=== PATIENT | male | born 1995 | race Caucasian/White ===

== ENCOUNTER 2016-10-31 07:02 | Emergency (ER) | payer OTHER ==
[~2016-10-31] VITALS: Ht 185.4 cm; Wt 84.6 kg
[2016-10-31 07:07] VITALS: TEMP 37.4; Ht 185.4 cm; Wt 84.6 kg
[2016-10-31] MEDS ORDERED: SODIUM CHLORIDE 0.9% 1000ML 1,000 ML IV STA ×2 (07:13→08:08)
[2016-10-31] MEDS ORDERED: ONDANSETRON INJ 2 MG/ML 2 ML VIAL IV STA (07:13)
[2016-10-31] MEDS ORDERED: KETOROLAC TROMETHAMINE 30 MG/ML VIAL IV STA (07:13)
[2016-10-31 07:24] LABS: BASO % 0.1 %; BASO ABS # 0.01 K/uL (0-0.2); COMPLETE YES; EOS % 0.4 %; HEMATOCRIT 42.8 % (42-52); IG% 0.1 %; LYMPH % 5.5 %; LYMPH ABS # 0.54 K/uL (1.2-3.4); MEAN CELL VOLUME 79.1 fL (80-100); MEAN CORPUSCULAR HEMOGLOBIN 26.8 pg (25-34); MEAN CORPUSCULAR HGB CONC 33.9 g/dl (32-36); MEAN PLATELET VOLUME 10.5 fL (7.4-10.4); MONO % 0.5 %; NEUT % 93.4 %; PLATELET COUNT 250 K/uL (130-400); RED BLOOD COUNT 5.41 M/uL (4.7-6.1); WHITE BLOOD COUNT 9.83 K/uL (4.8-10.8)
[2016-10-31 07:40] LABS: CALCIUM 9.1 mg/dl (8.5-10.1); CREATININE 1.2 mg/dl (0.60-1.40); POTASSIUM 3.6 mmol/L (3.5-5.1)
[2016-10-31] MEDS ORDERED: PROM25TA9 PO (08:13)
[2016-10-31 08:36] LABS: URINE APPEARANCE CLEAR (CLEAR); URINE BILIRUBIN NEG (NEG); URINE COLOR ORANGE; URINE NITRITE NEG (NEG); URINE SPECIFIC GRAVITY 1.023 (1.000-1.030); UROBILINOGEN NEG (NEG)
[2016-10-31 08:38] LABS: MANUAL MICROSCOPIC REQUIRED? NO; REVIEW REQ? NO
[2016-10-31 08:55] VITALS: BP 111/63; PULSE 115; O2SAT 96
--- NOTE | 2016-10-31 11:09 | EMERGENCY ROOM VISIT NOTE ---
History First contact with patient: 07:10 Chief Complaint: GI ASSESSMENT Stated Complaint: SHAKING,VOMITING,DIARRHEA,NAUSEA,HEADACHE Nursing Triage Summary: patient states he has had "really bad diarrhea for the past 2 days." today woke up with lower abdominal pain nausea and vomiting History of Present Illness The patient is a 21 year old male who presents to the Emergency Room with complaints of nausea, vomiting, diarrhea and headache. The patient reports that he woke up at 5:30 AM with the symptoms. The patient did have watery diarrhea yesterday. He has not had any blood in the stool or vomitus. He denies any recent sick contacts. He has had no recent foreign travel. He currently rates his overall discomfort a 5 out of 10. The patient reports that he has had some intermittent lower abdominal discomfort over the past 2 weeks. 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 He has had normal labs and a normal ultrasound study. The patient plans to follow-up with a account clerk. Review of Systems HEENT: Denies dizziness, visual problems, hearing loss, tinnitus. Denies difficulty swallowing or oral lesions. PULMONARY: Denies cough, shortness of breath, sputum production or hemoptysis. CARDIOVASCULAR: Denies chest pain, palpitations, dyspnea on exertion, orthopnea or peripheral edema. GASTROINTESTINAL: Denies diarrhea, constipation, nausea, vomiting, or abdominal pain. GENITOURINARY: Denies dysuria, frequency, urgency or nocturia. NEUROLOGIC: Denies history of epilepsy, CVA, TIA or chronic headaches. MUSCULOSKELETAL: Denies history of joint tenderness/swelling. SKIN: Denies rashes or lesions. PSYCHIATRIC: Denies history of depression or mental illness. ENDOCRINE: Denies history of diabetes, thyroid disorders, abnormal hair growth or sexual dysfunction. Past Medical/Surgical History Medical Problems: (1) No significant past medical history Surgical Problems: (1) History of orthopedic surgery Social History Smoking Status: Never Smoker Alcohol Use: occasionally Marital Status: single Housing Status: lives alone Occupation Status: [employer] Current/Historical Medications Scheduled PRN Promethazine Hcl (Phenergan), 25 MG PO q4-6h PRN for Nausea Allergies Coded Allergies: No Known Allergies (Unverified , 10/31/16) Physical Exam Vital Signs Date Time Temp Pulse Resp B/P Pulse Ox O2 Delivery O2 Flow Rate FiO2 10/31/16 08:55 115 20 111/63 96 10/31/16 07:07 37.4 145 18 136/70 96 Room Air Physical Exam CONSTITUTIONAL: Healthy and well nourished. Alert and oriented X 3 with positive affect. The patient is in moderate distress with vomiting. HEENT: Normocephalic, atraumatic. Pupils equal, round and reactive. Ears and nares are clear. OROPHARYNX: Mucous members are dry. No significant posterior pharyngeal erythema, tonsillar hypertrophy or exudates. NECK: Full active range of motion without discomfort. RESPIRATORY: Clear to auscultation bilaterally with no wheezing, crackles, rhonchi or stridor. CARDIOVASCULAR: Regular rate and rhythm with no murmurs, rubs or gallops. GASTROINTESTINAL: Bowel sounds present in all quadrants. She has generalized abdominal tenderness to palpation without rigidity, guarding or rebound. Negative CVA tenderness. MUSCULOSKELETAL: Full range of motion of all joints without discomfort. INTEGUMENTARY: No rash or other significant dermatologic conditions noted. HEMATOLOGIC: No ecchymosis or petechiae. NEUROLOGIC: No focal neurologic deficits noted. Medical Decision & Procedures Laboratory Results 10/31/16 07:15 Red Blood Count 5.41, Mean Corpuscular Volume 79.1, Mean Corpuscular Hemoglobin 26.8, Mean Corpuscular Hemoglobin Concent 33.9, Mean Platelet Volume 10.5, Neutrophils (%) (Auto) 93.4, Lymphocytes (%) (Auto) 5.5, Monocytes (%) (Auto) 0.5, Eosinophils (%) (Auto) 0.4, Basophils (%) (Auto) 0.1, Neutrophils # (Auto) 9.18, Lymphocytes # (Auto) 0.54, Monocytes # (Auto) 0.05, Eosinophils # (Auto) 0.04, Basophils # (Auto) 0.01 10/31/16 07:15 Test 10/31/16 07:15 10/31/16 08:06 White Blood Count 9.83 K/uL (4.8-10.8) Red Blood Count 5.41 M/uL (4.7-6.1) Hemoglobin 14.5 g/dL (14.0-18.0) Hematocrit 42.8 % (42-52) Mean Corpuscular Volume 79.1 fL (80-100) Mean Corpuscular Hemoglobin 26.8 pg (25-34) Mean Corpuscular Hemoglobin Concent 33.9 g/dl (32-36) Platelet Count 250 K/uL (130-400) Mean Platelet Volume 10.5 fL (7.4-10.4) Neutrophils (%) (Auto) 93.4 % Lymphocytes (%) (Auto) 5.5 % Monocytes (%) (Auto) 0.5 % Eosinophils (%) (Auto) 0.4 % Basophils (%) (Auto) 0.1 % Neutrophils # (Auto) 9.18 K/uL (1.4-6.5) Lymphocytes # (Auto) 0.54 K/uL (1.2-3.4) Monocytes # (Auto) 0.05 K/uL (0.11-0.59) Eosinophils # (Auto) 0.04 K/uL (0-0.5) Basophils # (Auto) 0.01 K/uL (0-0.2) RDW Standard Deviation 40.3 fL (36.4-46.3) RDW Coefficient of Variation 14.1 % (11.5-14.5) Immature Granulocyte % (Auto) 0.1 % Immature Granulocyte # (Auto) 0.01 K/uL (0.00-0.02) Anion Gap 9.0 mmol/L (3-11) Est Creatinine Clear Calc Drug Dose 109.1 ml/min Estimated GFR () 98.9 Estimated GFR (Non- 85.3 BUN/Creatinine Ratio 12.0 (10-20) Calcium Level 9.1 mg/dl (8.5-10.1) Total Bilirubin 1.3 mg/dl (0.2-1) Direct Bilirubin 0.3 mg/dl (0-0.2) Aspartate Amino Transf (AST/SGOT) 19 U/L (15-37) Alanine Aminotransferase (ALT/SGPT) 25 U/L (12-78) Alkaline Phosphatase 117 U/L (45-117) Total Creatine Kinase 107 U/L (39-308) Total Protein 7.9 gm/dl (6.4-8.2) Albumin 3.8 gm/dl (3.4-5.0) Lipase 81 U/L (73-393) Urine Color ORANGE Urine Appearance CLEAR (CLEAR) Urine pH 5.0 (4.5-7.5) Urine Specific [place] 1.023 (1.000-1.030) Urine Protein NEG (NEG) Urine Glucose (UA) NEG (NEG) Urine Ketones TRACE (NEG) Urine Occult Blood NEG (NEG) Urine Nitrite NEG (NEG) Urine Bilirubin NEG (NEG) Urine Urobilinogen NEG (NEG) Urine Leukocyte Esterase NEG (NEG) The above labs were reviewed. CBC, partial renal profile, LFTs and lipase are normal. Bilirubins are elevated. Medications Administered Medications (Trade) Dose Ordered Sig/Spencer Route Start Time Stop Time Status Last Admin Dose Admin Ketorolac Tromethamine 30 mg 30 mg NOW STAT IV 10/31/16 07:13 10/31/16 07:14 DC 10/31/16 07:19 30 MG Sodium Chloride (Nss 1000ml) 1,000 ml @ 999 mls/hr Q1H1M STAT IV 10/31/16 07:13 10/31/16 08:13 DC 10/31/16 07:16 999 MLS/HR Ondansetron HCl 4 mg 4 mg NOW STAT IV 10/31/16 07:13 10/31/16 07:14 DC 10/31/16 07:19 4 MG Sodium Chloride (Nss 1000ml) 1,000 ml @ 999 mls/hr Q1H1M STAT IV 10/31/16 08:08 10/31/16 09:08 DC 10/31/16 08:08 999 MLS/HR Procedure 1. IV hydration: The patient received a liter normal saline bolus 2. IV medications: Toradol 30 mg and Zofran 4 mg IVP ED Course Patient history and physical exam were performed. Nurse's notes were reviewed. Vital signs were reviewed, showing a heart rate 145. Temperature is 37.4C. The patient is normotensive. IV access was established, and labs were drawn. The patient was hydrated with normal saline, and received IV medications as discussed in the previous Procedure section. Review of labs shows no leukocytosis, electrolyte abnormality, elevated LFTs or lipase. Bilirubin levels are elevated, likely secondary to vomiting. The patient reports feeling much better after IV hydration and medications, and requested discharge home. The patient was encouraged to remain well-hydrated. He was provided a prescription for Phenergan as needed for nausea. Tylenol as needed for pain/ fever. Return to the emergency department for any persistent vomiting or inability to remain hydrated. Otherwise, he was instructed to follow-up with [facility] as needed for any persistent GI symptoms. The patient again reports that he intends to follow-up with gastroenterology for his prior abdominal pain. The patient was happy with plan of care, and denied any significant symptoms at the time of discharge. Medical Decision Patient presents to the emergency department with acute onset of nausea, vomiting and watery diarrhea. I suspect the patient has a viral gastroenteritis. Laboratory studies are relatively unremarkable. At this point , I do not suspect obstruction, appendicitis, colitis, diverticulitis, cholecystitis, pancreatitis or hepatitis. Impression Primary Impression: Gastroenteritis Departure Information Prescriptions Promethazine Hcl (Phenergan) 25 Mg Tab 25 MG PO q4-6h Y for Nausea, #20 TAB Prov: Wilfredo Willard PA 10/31/16 Referrals No Doctor, Assigned (PCP) Patient Instructions My [facility]
== END 2016-10-31 09:23 | disposition home or self-care (01) ==
LOC: C.EDB 07:03
DX: K52.9 Noninfective gastroenteritis and colitis, unspecified (principal)

== ENCOUNTER 2016-12-23 16:15 | Emergency (ER) | payer OTHER ==
[~2016-12-23] VITALS: Ht 185.4 cm; Wt 86.8 kg
[~2016-12-23 16:15] MED LIST: PROM25TA9 PO
[2016-12-23 16:24] VITALS: TEMP 36.8; Ht 185.4 cm; Wt 86.8 kg
[2016-12-23] MEDS ORDERED: SODIUM CHLORIDE 0.9% 1000ML 2,000 ML IV STA (17:08)
[2016-12-23] MEDS ORDERED: PROMETHAZINE HCL INJ 6.25 MG in SODIUM CHLORIDE 0.9% 50ML 50 ML IV STA (17:08)
[2016-12-23] MEDS ORDERED: ONDANSETRON INJ 2 MG/ML 2 ML VIAL IV STA (17:08)
[2016-12-23] MEDS ORDERED: ACETAMINOPHEN 500 MG TAB PO STA (17:08)
[2016-12-23] MEDS ORDERED: PROMETHAZINE HCL INJ 25 MG/ML 1 ML VIAL ONE (18:02)
[2016-12-23 18:11] LABS: BASO % 0.2 %; BASO ABS # 0.02 K/uL (0-0.2); COMPLETE YES; EOS % 0.6 %; HEMATOCRIT 42.4 % (42-52); IG% 0.3 %; LYMPH % 5.7 %; LYMPH ABS # 0.67 K/uL (1.2-3.4); MEAN CELL VOLUME 81.1 fL (80-100); MEAN CORPUSCULAR HEMOGLOBIN 27.2 pg (25-34); MEAN CORPUSCULAR HGB CONC 33.5 g/dl (32-36); MEAN PLATELET VOLUME 10.4 fL (7.4-10.4); MONO % 7.2 %; PLATELET COUNT 310 K/uL (130-400); RED BLOOD COUNT 5.23 M/uL (4.7-6.1)
--- NOTE | 2016-12-23 18:14 | DIAGNOSTIC IMAGING REPORT ---
ABDOMEN 2VIEW W/PA CHEST RTN CLINICAL HISTORY: Abdominal pain and vomiting COMPARISON STUDY: No previous studies for comparison. FINDINGS: The erect chest reveals no evidence of free air. There is no evidence of focal pulmonary consolidation.] Erect and supine views of the abdomen reveal no abnormally dilated loops of large or small bowel. There are no transition zone to indicate bowel obstruction. There is an old left inferior pubic ramus fracture/avulsion with bony hypertrophy. IMPRESSION: No evidence of bowel obstruction. No evidence of free air. Electronically signed by: Gabriel Magdaleno M.D. 12/23/2016 6:13 PM Dictated Date/Time: 12/23/2016 6:12 PM
[2016-12-23 18:36] LABS: BUN/CREATININE RATIO 12.6 (10-20); CALCIUM 9.5 mg/dl (8.5-10.1); CREATININE 0.86 mg/dl (0.60-1.40); POTASSIUM 4.2 mmol/L (3.5-5.1)
[2016-12-23] MEDS ORDERED: ONDANSETRON HOME PACK 4MG OD TAB PO ONE (19:45)
[2016-12-23 20:04] VITALS: BP 118/70; PULSE 77; O2SAT 98
--- NOTE | 2016-12-23 20:55 | EMERGENCY ROOM VISIT NOTE ---
History Report prepared by Ray: Zahira Lombardo Under the Supervision of: Dr. Christos Gray M.D. First contact with patient: 17:04 Chief Complaint: VOMITING Stated Complaint: VOMITING SM AMT OF BLOOD, FEEL LIKE PASSING OUT Nursing Triage Summary: Patient c/o vomiting since last night after he drank alcohol. About an hour ago noticed blood in his vomit, very little amount. C/O headache. States he notice red blood in stool 3 to 4 days. Occurs intermittently. History of Present Illness The patient is a 21 year old male who presents to the Emergency Room with complaints of persistent vomiting starting this morning. He was out drinking alcohol last night and thought the vomiting was a result of his intoxication. He reports nausea and headache. He rates his headache as a 5/10 in severity. He has been unable to keep any food or fluids down today. He noticed a small amount of blood in his vomit today. He had some bloody stool 3-4 days ago. He denies any diarrhea, fever, SOB, cough, or abdominal pain. He denies any head trauma last night. He has not taken any medications for his headache. He had some abdominal pain several months ago and he was told to follow with GI. Source of History: patient Onset: this morning Position: other (global) Quality: other (vomiting) Timing: other (persistent) Associated Symptoms: + headache, + nausea, No SOB, No abdominal pain, No cough, No diarrhea, No fevers Note: Pt reports hematemesis, bloody stool. Review of Systems See HPI for pertinent positives & negatives. A total of 10 systems reviewed and were otherwise negative. Past Medical & Surgical Medical Problems: (1) No significant past medical history Surgical Problems: (1) History of orthopedic surgery Family History No pertinent family history stated. Social History Smoking Status: Never Smoker Alcohol Use: occasionally Marital Status: single Housing Status: lives alone Occupation Status: [employer] student Current/Historical Medications No Active Prescriptions or Reported Meds Allergies Coded Allergies: No Known Allergies (Unverified , 10/31/16) Physical Exam Vital Signs Date Time Temp Pulse Resp B/P Pulse Ox O2 Delivery O2 Flow Rate FiO2 12/23/16 20:04 77 16 118/70 98 12/23/16 18:24 78 16 128/69 100 Room Air 12/23/16 16:24 36.8 87 17 145/81 97 Room Air Physical Exam GENERAL: Patient is in no acute distress. HEENT: No acute trauma, normocephalic atraumatic, mucous membranes dry, no nasal congestion, no scleral icterus. NECK: No stridor, no adenopathy, no meningismus, trachea is midline. LUNGS: Clear to auscultation bilaterally, no wheeze, no rhonchi, breath sounds equal. HEART: Without murmurs gallops or rubs, regular rate and rhythm. ABDOMEN: Soft, nontender, bowel sounds positive, no hernias, no peritonitis. EXTREMITIES: No cyanosis or edema, full range of motion of all the joints without pain or difficulty, no signs for acute trauma. NEUROLOGIC: Oriented x 3, no acute motor or sensory deficits, no focal weakness. SKIN: No rash, no jaundice, no diaphoresis. Medical Decision & Procedures ER Provider Diagnostic Interpretation: X-ray results as stated below per interpretation by me and the radiologist: ABDOMEN 2VIEW W/PA CHEST RTN CLINICAL HISTORY: Abdominal pain and vomiting COMPARISON STUDY: No previous studies for comparison. FINDINGS: The erect chest reveals no evidence of free air. There is no evidence of focal pulmonary consolidation.] Erect and supine views of the abdomen reveal no abnormally dilated loops of large or small bowel. There are no transition zone to indicate bowel obstruction. There is an old left inferior pubic ramus fracture/avulsion with bony hypertrophy. IMPRESSION: No evidence of bowel obstruction. No evidence of free air. Electronically signed by: Gabriel Magdaleno M.D. 12/23/2016 6:13 PM Dictated Date/Time: 12/23/2016 6:12 PM Laboratory Results 12/23/16 17:47 Red Blood Count 5.23, Mean Corpuscular Volume 81.1, Mean Corpuscular Hemoglobin 27.2, Mean Corpuscular Hemoglobin Concent 33.5, Mean Platelet Volume 10.4, Neutrophils (%) (Auto) 86.0, Lymphocytes (%) (Auto) 5.7, Monocytes (%) (Auto) 7.2, Eosinophils (%) (Auto) 0.6, Basophils (%) (Auto) 0.2, Neutrophils # (Auto) 10.07, Lymphocytes # (Auto) 0.67, Monocytes # (Auto) 0.84, Eosinophils # (Auto) 0.07, Basophils # (Auto) 0.02 12/23/16 17:47 Test 12/23/16 17:47 White Blood Count 11.70 K/uL (4.8-10.8) Red Blood Count 5.23 M/uL (4.7-6.1) Hemoglobin 14.2 g/dL (14.0-18.0) Hematocrit 42.4 % (42-52) Mean Corpuscular Volume 81.1 fL (80-100) Mean Corpuscular Hemoglobin 27.2 pg (25-34) Mean Corpuscular Hemoglobin Concent 33.5 g/dl (32-36) Platelet Count 310 K/uL (130-400) Mean Platelet Volume 10.4 fL (7.4-10.4) Neutrophils (%) (Auto) 86.0 % Lymphocytes (%) (Auto) 5.7 % Monocytes (%) (Auto) 7.2 % Eosinophils (%) (Auto) 0.6 % Basophils (%) (Auto) 0.2 % Neutrophils # (Auto) 10.07 K/uL (1.4-6.5) Lymphocytes # (Auto) 0.67 K/uL (1.2-3.4) Monocytes # (Auto) 0.84 K/uL (0.11-0.59) Eosinophils # (Auto) 0.07 K/uL (0-0.5) Basophils # (Auto) 0.02 K/uL (0-0.2) RDW Standard Deviation 43.0 fL (36.4-46.3) RDW Coefficient of Variation 14.4 % (11.5-14.5) Immature Granulocyte % (Auto) 0.3 % Immature Granulocyte # (Auto) 0.03 K/uL (0.00-0.02) Anion Gap 5.0 mmol/L (3-11) Est Creatinine Clear Calc Drug Dose 152.2 ml/min Estimated GFR () 142.7 Estimated GFR (Non- 123.1 BUN/Creatinine Ratio 12.6 (10-20) Calcium Level 9.5 mg/dl (8.5-10.1) Total Bilirubin 0.5 mg/dl (0.2-1) Aspartate Amino Transf (AST/SGOT) 28 U/L (15-37) Alanine Aminotransferase (ALT/SGPT) 29 U/L (12-78) Alkaline Phosphatase 111 U/L (45-117) Total Protein 8.3 gm/dl (6.4-8.2) Albumin 4.1 gm/dl (3.4-5.0) Globulin 4.2 gm/dl (2.5-4.0) Albumin/Globulin Ratio 1.0 (0.9-2) Lipase 102 U/L (73-393) Laboratory results reviewed by me. Medications Administered Medications (Trade) Dose Ordered Sig/Spencer Route Start Time Stop Time Status Last Admin Dose Admin Promethazine HCl/ Sodium Chloride (Phenergan Inj/ Nss 50ml) 50.25 ml @ 204 mls/hr NOW STAT IV 12/23/16 17:08 12/23/16 17:22 DC 12/23/16 18:25 204 MLS/HR Ondansetron HCl 4 mg 4 mg NOW STAT IV 12/23/16 17:08 12/23/16 17:11 DC 12/23/16 18:25 4 MG Sodium Chloride (Nss 1000ml) 2,000 ml @ 999 mls/hr Q2H1M STAT IV 12/23/16 17:08 12/23/16 19:08 DC 12/23/16 18:25 999 MLS/HR Acetaminophen (Tylenol Tab) 1,000 mg NOW STAT PO 12/23/16 17:08 12/23/16 17:11 DC 12/23/16 18:26 1,000 MG ED Course 1707: The patient was evaluated in room B6. A complete history and physical exam was performed. 1707: Acetaminophen 1000 mg PO, NSS 2000 ml @ 999 mls/hr IV, Zofran Inj 4 mg IV , Promethazine HCl 6.25 mg/Sodium Chloride 50.25 ml @ 204 mls/hr IV. 1910: I reevaluated the patient. He is resting comfortably. He feels improved. 1941: I reevaluated the patient. He is resting comfortably. I discussed results and discharge instructions: he verbalized understanding and agreement. The patient is ready for discharge. 1944: Ondansetron HCl 1 homepack PO. Medical Decision Differential diagnosis: dehydration, electrolyte imbalance, GI bleed, alcohol related vomiting, viral illness. There is a mild leukocytosis which could be consistent with infection or just his vomiting. No anemia. No significant electrolyte abnormality, kidney failure, hepatitis or pancreatitis. Obstruction series shows no pneumonia, free air or bowel obstruction. The patient received IV Zofran, IV Phenergan, IV saline. He feels markedly better. He was able to tolerate oral Tylenol. The patient is resting, he is doing well. I think that the alcohol caused his vomiting and dehydration. I do think he can be discharged with some Zofran for nausea, a simple diet, rest and hydration. If worsening, he can return. Impression Primary Impression: Vomiting Additional Impressions: Dehydration Alcohol use Scribe Attestation The scribe's documentation has been prepared under my direction and personally reviewed by me in its entirety. I confirm that the note above accurately reflects all work, treatment, procedures, and medical decision making performed by me. Departure Information Dispostion Home / Self-Care Prescriptions No Active Prescriptions or Reported Meds Referrals No Doctor, Assigned (PCP) Forms HOME CARE DOCUMENTATION FORM, IMPORTANT VISIT INFORMATION Patient Instructions My [facility] Additional Instructions zofran 1 tab every 6 hours for nausea bland diet---crackers, soup, toast, gatorade return if worsening tylenol otc for pain lab testing was ok as discussed xrays were all ok Problem Qualifiers
== END 2016-12-23 20:05 | disposition home or self-care (01) ==
LOC: C.EDB 16:16
DX: R11.10 Vomiting, unspecified (principal); E86.0 Dehydration; F10.10 Alcohol abuse, uncomplicated